=== PATIENT | male | born 1955 | race Caucasian/White ===

== ENCOUNTER 2023-10-16 22:25 | Emergency (ER) | payer SELFPAY ==
[~2023-10-16] VITALS: Ht 175.3 cm; Wt 84.1 kg
[2023-10-16 22:31] VITALS: TEMP 98.9
[2023-10-16] MEDS ORDERED: Ketorolac 60 MG/2 ML VIAL IM ONE (22:45)
[2023-10-16] MEDS ORDERED: FLEXERIL 1010 MG/TAB PO (23:26)
[2023-10-16] MEDS ORDERED: PREDNISONE20 MG PO (23:26)
[2023-10-16] MEDS ORDERED: NORCO 325 MG-51 TAB PO (23:27)
[2023-10-16] MEDS ORDERED: Home Cyclobenzaprine 10 MG #2 TABS/PACK PO ONE (23:30)
[2023-10-16 23:37] VITALS: BP 110/80; PULSE 67
== END 2023-10-16 23:37 | disposition home or self-care (01) ==
LOC: COL.ER 22:25
DX: M43.6 Torticollis (principal)
CPT/HCPCS: J1885; J2360